=== PATIENT | female | born 1995 | race Caucasian/White ===

== ENCOUNTER 2020-10-09 12:22 | Emergency (ER) | payer SELFPAY ==
[~2020-10-09] VITALS: Ht 160 cm; Wt 64.9 kg
[2020-10-09 12:40] VITALS: BP 142/77
--- NOTE | 2020-10-09 12:40 | NUR ---
AT BEDSIDE FOR EVAL.
--- NOTE | 2020-10-09 12:40 | NUR ---
BIB SELF C/O L HAND LAC WHILE CUTTING [facility]. RATES PAIN 8/10. ALERT AND ORIENTED X4. DENIES NUMBNESS/TINGLING IN THE EXTREMITY. WILL CONTINUE TO MONITOR THE PATIENT.
[2020-10-09] MEDS ORDERED: LIDOCAINE 1%-EPI 1:100,000 20 ML VIAL ONE (12:46)
[2020-10-09] MEDS ORDERED: TDAP [DIPH/PERTUSSIS/TET] 0.5 ML VIAL IM ONE ×2 (12:51→13:00)
[2020-10-09] MEDS ORDERED: LIDOCAINE 1%-EPI 1:100,000 50 ML VIAL IJ ONE (13:00)
--- NOTE | 2020-10-09 14:04 | NUR ---
URINE AND COVID RESULTS FAXED TO [facility] PER REQUEST.
[2020-10-09] MEDS ORDERED: IBUP-1955 PO (14:07)
--- NOTE | 2020-10-09 14:11 | NUR ---
Patient discharged to home in stable condition. Written and verbal after care instructions given. Patient verbalizes understanding of instruction.
== END 2020-10-09 14:12 | disposition home or self-care (01) ==
LOC: ER 12:22
DX: S61.412A Laceration without foreign body of left hand, initial encounter (principal); F41.9 Anxiety disorder, unspecified; W26.8XXA Contact with other sharp object(s), not elsewhere classified, initial encounter; Y93.89 Activity, other specified; Y92.89 Other specified places as the place of occurrence of the external cause; Y99.8 Other external cause status
CPT/HCPCS: 12001; 90471; 90715; 99283; J3490 ×2